=== PATIENT | male | born 1965 | race Caucasian/White ===

== ENCOUNTER 2017-05-09 14:02 | Emergency (ER) | payer BC ==
[~2017-05-09] VITALS: Ht 177.8 cm; Wt 109.7 kg
[2017-05-09 14:55] LABS: BASOPHIL COUNT 0.1 K/uL (0-0.1); EOSINOPHIL COUNT 0.3 K/uL (0-0.3); HEMATOCRIT 41.7 % (38.0-50.0); IMMATURE GRANULOCYTE (%) 0.7 % (0.0-0.7); IMMATURE GRANULOCYTE COUNT 0.1 K/uL; INSTRUMENT ABS NEUTROPHIL CT 5.3 K/uL; LYMPHOCYTE COUNT 1.6 K/uL (1.0-2.8); MCH 25.2 PG (29.0-34.0); MCHC 32.6 G/DL (30.0-36.0); MCV 77.4 FL (86-99); MEAN PLAT.VOLUME 12.6 uM^3 (9.0-12.4); MONOCYTE COUNT 0.7 K/uL (0-0.8); NEUTROPHIL (%) 65.1 % (45-76); NEUTROPHIL COUNT 5.3 K/uL (1.8-6.4); PLATELET COUNT 256 K/uL (156-360); RBC DIS.WIDTH-CV 14.6 % (11.8-14.6); RBC DIS.WIDTH-SD 40.4 % (39-53); RED BLOOD COUNT 5.39 M/uL (4.00-5.50); WHITE BLOOD COUNT 8.2 K/uL (4.1-10.2)
[2017-05-09 15:01] LABS: INTER. NORMALIZED RATIO 1.1
[2017-05-09 15:04] LABS: PTT 28.5 SEC (25-37)
[2017-05-09 15:05] LABS: CHLORIDE 105 mEq/L (99-109); POTASSIUM 3.7 mEq/L (3.7-5.4); SODIUM 139 mEq/L (136-147)
[2017-05-09 15:07] LABS: GLUCOSE 147 mg/dL (70-99)
[2017-05-09 15:08] LABS: ANION GAP 11 MEQ/L (2-14)
[2017-05-09 15:11] LABS: GFR ESTIMATE (CALCULATED) > 59 mL/min/
[2017-05-09 15:12] LABS: UREA NITROGEN (BUN) 15 mg/dL (9-23)
[2017-05-09 15:19] LABS: TROP-I INTERPRETATION NEGATIVE; TROPONIN-I < 0.01 ng/mL (0.0-0.30)
[2017-05-09 17:33] LABS: TROP-I INTERPRETATION NEGATIVE; TROPONIN-I < 0.01 ng/mL (0.0-0.30)
[2017-05-09 19:26] VITALS: BP 137/79
== END 2017-05-09 19:27 | disposition home or self-care (01) ==
LOC: EME 14:02
PROVIDERS: Emergency Medicine
DX: R07.89 Other chest pain (principal); M30.3 Mucocutaneous lymph node syndrome [Kawasaki]; I10 Essential (primary) hypertension; E78.5 Hyperlipidemia, unspecified
CPT/HCPCS: 71010; 71275; 80048; 84484; 85025; 85610; 85730; 93005; 99281; 99285; J2270